=== PATIENT | male | born 1960 | race Caucasian/White ===

== ENCOUNTER 2021-11-29 06:35 | Day surgery (SDC) | payer MEDICARE ==
[2021-11-29] VITALS (10 sets, daily range): BP systolic 148–183; BP diastolic 71–93
[~2021-11-29] VITALS: Ht 177.8 cm; Wt 98.8 kg
[~2021-11-29 06:35] MED LIST: ASPI-1265 PO; ATOR20TA66 PO; ESOM20CA23 PO; LOP25T PO; LOSA1TAB36 PO; NITR0.4T51 SL; TICA90TA PO
[2021-11-29] MEDS ORDERED: AZIL80TA PO (07:08)
[2021-11-29] MEDS ORDERED: NITR0.4T48 (07:08)
[2021-11-29] MEDS ORDERED: ROSU40TA22 PO (07:08)
[2021-11-29 07:40] LABS: BASOPHILS % (AUTO) 0.7 % (0-1); EOSINOPHILS # (AUTO) 0.1 X10'3 (0-0.9); EOSINOPHILS % (AUTO) 2.2 % (0-6); HEMATOCRIT 45.1 % (42.0-52.0); HEMOGLOBIN 15.3 g/dl (14.0-17.9); LYMPHOCYTES # (AUTO) 1.8 X10'3 (1.1-4.8); LYMPHOCYTES % (AUTO) 27.6 % (21-51); MEAN CORPUSCULAR HEMOGLOBIN 27.6 PG (27.0-31.0); MEAN CORPUSCULAR HGB CONC 33.8 g/dL (33.0-36.5); MEAN CORPUSCULAR VOLUME 81.5 FL (78-98); MEAN PLATELET VOLUME 8.9 FL (7.4-10.4); MONOCYTES # (AUTO) 0.7 X10'3 (0-0.9); MONOCYTES % (AUTO) 11.4 % (2-12); NEUTROPHILS # (AUTO) 3.8 X10'3 (1.8-7.7); NEUTROPHILS % (AUTO) 58.1 % (42-75); PLATELET COUNT 209 X10'3 (140-440); RED BLOOD COUNT 5.54 X10'6 (4.70-6.10); RED CELL DISTRIBUTION WIDTH 17.5 % (11.5-14.5); WHITE BLOOD COUNT 6.5 X10'3 (4.5-11.0)
[2021-11-29] MEDS ORDERED: diphenhydrAMINE 25mg capsule PO PRN (07:40)
[2021-11-29] MEDS ORDERED: normal saline 1,000 ML IV SCH (07:40)
[2021-11-29 07:59] LABS: ALBUMIN 4.1 G/DL (3.4-5.0); ANION GAP 11 (8-16); BLOOD UREA NITROGEN 12 MG/DL (7-18); BUN/CREATININE RATIO 10.2 (5.4-32.0); CALCIUM 9.2 MG/DL (8.5-10.1); CHLORIDE 106 MMOL/L (99-107); CREATININE 1.18 MG/DL (0.60-1.10); GLUCOSE 118 MG/DL (70-104); MAGNESIUM 2.1 MG/DL (1.5-2.4); POTASSIUM 3.9 MMOL/L (3.5-5.1); SODIUM 144 MMOL/L (135-145); TOTAL CARBON DIOXIDE 27.4 MMOL/L (24-32); eGFR 62 ML/MIN
[2021-11-29] MEDS ORDERED: fentaNYL/PF 50MCG/1 ML 2ML syringe ONE (08:45)
[2021-11-29] MEDS ORDERED: nitroGLYCERIN-Tridil 50MG/D5W 250 ML IV ONE (08:45)
[2021-11-29] MEDS ORDERED: verapamil 2.5 mg/ml inj IV ONE (08:45)
[2021-11-29] MEDS ORDERED: LIDOcaine 1% 30ml preserv. free vial ONE (08:45)
[2021-11-29] MEDS ORDERED: midazolam 1 mg/ML 2ml injection ONE ×3 (08:45→10:18)
[2021-11-29] MEDS ORDERED: iohexol 350 MG/1 ML 200ml bottle ONE (08:46)
[2021-11-29] MEDS ORDERED: heparin 1,000unit/ml 10ml vial 10 ML ONE (08:46)
[2021-11-29] MEDS ORDERED: proCHLORperazine 10 MG/2 ml inj IV PRN (11:15)
[2021-11-29] MEDS ORDERED: normal saline 1000ml 1,000 ML IV SCH (11:15)
[2021-11-29] MEDS ORDERED: HYDROcodone/acetaminophen 5mg/325mg tablet PO PRN (11:15)
[2021-11-29] MEDS ORDERED: ondansetron/PF 4mg/2ml inj IV PRN (11:15)
== END 2021-11-29 15:10 | disposition home or self-care (01) ==
LOC: SSTAY O 06:35
PROVIDERS: ATTEND Internal Medicine Cardiovascular Disease
DX: R06.09 Other forms of dyspnea (principal); I25.118 Atherosclerotic heart disease of native coronary artery with other forms of angina pectoris; I25.82 Chronic total occlusion of coronary artery; I47.2 Ventricular tachycardia; E78.5 Hyperlipidemia, unspecified; I10 Essential (primary) hypertension; J44.9 Chronic obstructive pulmonary disease, unspecified; G47.30 Sleep apnea, unspecified; I25.2 Old myocardial infarction; Z95.5 Presence of coronary angioplasty implant and graft; Z79.899 Other long term (current) drug therapy; Z98.890 Other specified postprocedural states; Z87.891 Personal history of nicotine dependence; Z72.89 Other problems related to lifestyle; Z88.5 Allergy status to narcotic agent; Z88.8 Allergy status to other drugs, medicaments and biological substances; Z82.49 Family history of ischemic heart disease and other diseases of the circulatory system; Z80.1 Family history of malignant neoplasm of trachea, bronchus and lung
CPT/HCPCS: 36415; 80048; 83735; 85025; 85610; 93005; 93458; 99152; 99153; C1751; C1769; C1894; J1644; J2250; J3010; J3490; J7030; Q0163; Q9967; A4620; A6258

== ENCOUNTER 2023-10-09 06:25 | Day surgery (SDC) | payer MEDICARE ==
[~2023-10-09] VITALS: Ht 175.3 cm; Wt 96.8 kg
[2023-10-09] VITALS (18 sets, daily range): BP systolic 126–173; BP diastolic 71–101; PULSE 43–72; RESP 12–25; TEMP 97.8; O2SAT 95–98
[~2023-10-09 06:25] MED LIST changes: -ASPI-1265 PO; -ATOR20TA66 PO; +AZIL80TA PO; -ESOM20CA23 PO; -LOP25T PO; -LOSA1TAB36 PO; +NITR0.4T48; -NITR0.4T51 SL; +ROSU40TA22 PO; -TICA90TA PO
[2023-10-09] MEDS ORDERED: CHLO25TA10 PO (07:00)
[2023-10-09] MEDS ORDERED: ALFU10TA10 PO (07:00)
[2023-10-09] MEDS ORDERED: FENO134C22 PO (07:00)
[2023-10-09] MEDS ORDERED: LABE100T8 PO (07:00)
[2023-10-09] MEDS ORDERED: EZET10TA48 PO (07:00)
[2023-10-09 07:07] LABS: BASOPHILS % (AUTO) 0.7 % (0-1); EOSINOPHILS # (AUTO) 0.2 X10'3 (0-0.9); EOSINOPHILS % (AUTO) 2.6 % (0-6); HEMATOCRIT 37.1 % (42.0-52.0); HEMOGLOBIN 12.3 g/dl (14.0-17.9); LYMPHOCYTES # (AUTO) 1.7 X10'3 (1.1-4.8); LYMPHOCYTES % (AUTO) 28.6 % (21-51); MEAN CORPUSCULAR HEMOGLOBIN 27.7 PG (27.0-31.0); MEAN CORPUSCULAR HGB CONC 33.2 g/dL (33.0-36.5); MEAN CORPUSCULAR VOLUME 83.4 FL (78-98); MEAN PLATELET VOLUME 8.9 FL (7.4-10.4); MONOCYTES # (AUTO) 0.7 X10'3 (0-0.9); MONOCYTES % (AUTO) 11.3 % (2-12); NEUTROPHILS # (AUTO) 3.3 X10'3 (1.8-7.7); NEUTROPHILS % (AUTO) 56.8 % (42-75); PLATELET COUNT 237 X10'3 (140-440); RED BLOOD COUNT 4.45 X10'6 (4.70-6.10); RED CELL DISTRIBUTION WIDTH 17.8 % (11.5-14.5); WHITE BLOOD COUNT 5.9 X10'3 (4.5-11.0)
[2023-10-09 07:14] LABS: PROTHROMBIN TIME 11.1 SECONDS (9.0-12.0)
[2023-10-09 07:15] LABS: ANION GAP 7 (8-16); BLOOD UREA NITROGEN 18 MG/DL (7-18); BUN/CREATININE RATIO 11.5 (10.0-20.0); CALCIUM 8.8 MG/DL (8.5-10.1); CHLORIDE 106 MMOL/L (99-107); CREATININE 1.56 MG/DL (0.60-1.10); GLUCOSE 110 MG/DL (70-104); MAGNESIUM 1.9 MG/DL (1.5-2.4); POTASSIUM 3.5 MMOL/L (3.5-5.1); SODIUM 143 MMOL/L (135-145); TOTAL CARBON DIOXIDE 30.3 MMOL/L (24-32); eCRCL 47 ML/MIN; eGFR 45 ML/MIN
[2023-10-09] MEDS: diphenhydrAMINE 25mg capsule PO PRN (07:30)
[2023-10-09] MEDS: sodium bicarbonate 1meq/ml syr 150 ML in dextrose 5%-water 1,000 ML IV SCH (07:33)
[2023-10-09] MEDS: normal saline 1,000 ML IV SCH (07:36)
[2023-10-09] MEDS ORDERED: midazolam 1 mg/ML 2ml injection ONE ×3 (10:24→11:44)
[2023-10-09] MEDS ORDERED: LIDOcaine 1% 30ml preserv. free vial ONE (10:24)
[2023-10-09] MEDS ORDERED: fentaNYL/PF 50MCG/1 ML 2ML syringe ONE ×2 (10:24→11:44)
[2023-10-09] MEDS ORDERED: heparin 1,000unit/ml 10ml vial 10 ML ONE (10:25)
[2023-10-09] MEDS ORDERED: iohexol 350MG/ML 100ml bottle IV ONE (10:25)
[2023-10-09] MEDS ORDERED: clopidogrel 300mg tablet ONE (12:15)
[2023-10-09] MEDS ORDERED: ondansetron/PF 4mg/2ml inj IV PRN (12:45)
[2023-10-09] MEDS ORDERED: proCHLORperazine 10 MG/2 ml inj IV PRN (12:45)
== END 2023-10-09 17:05 | disposition home or self-care (01) ==
LOC: SSTAY O 06:25
PROVIDERS: ATTEND Internal Medicine Cardiovascular Disease
DX: I70.211 Atherosclerosis of native arteries of extremities with intermittent claudication, right leg (principal); I10 Essential (primary) hypertension; I25.118 Atherosclerotic heart disease of native coronary artery with other forms of angina pectoris; E78.5 Hyperlipidemia, unspecified; J44.9 Chronic obstructive pulmonary disease, unspecified; I25.2 Old myocardial infarction; G47.30 Sleep apnea, unspecified; Z79.82 Long term (current) use of aspirin; Z79.899 Other long term (current) drug therapy; Z98.890 Other specified postprocedural states; Z88.5 Allergy status to narcotic agent; Z88.8 Allergy status to other drugs, medicaments and biological substances
CPT/HCPCS: 36415; 80048; 83735; 85025; 85610; 93005; 99152; 99153; C1876; C9765; J1644; J2250; J3010; J3490; J7030; J7070; Q0163; Q9967; 36247; 37236; A6258; C1725; C1760; C1761; C1769; C1894; C2623